=== PATIENT | male | born 1985 | race Two or more races ===

== ENCOUNTER 2022-06-18 17:14 | Emergency (ER) | payer SELFPAY ==
[2022-06-18 18:55] LABS: CARBON DIOXIDE,CO2 27.3 mmol/L (21.0-32.0); POTASSIUM,K 3.8 mmol/L (3.5-5.1)
[2022-06-18] MEDS ORDERED: Iopamidol 755 MG/ML 500 ML Multipack Bottle IVPUSH STA (20:13)
[2022-06-18] MEDS ORDERED: Doxycycline 100 MG Cap PO ONE (21:17)
== END 2022-06-18 21:57 | disposition home or self-care (01) ==
LOC: MW.ED 17:14
DX: L03.211 Cellulitis of face (principal); R51.9 Headache, unspecified; Z20.822 Contact with and (suspected) exposure to COVID-19
CPT/HCPCS: 36415; 70450; 70487; 80053; 83735; 85025; 85610; 85730; 87635; 99284; Q9967; U0002